=== PATIENT | male | born 1990 | race Caucasian/White ===

== ENCOUNTER 2021-02-10 09:51 | Emergency (ER) | payer SELFPAY | END 2021-02-10 12:10 | disposition home or self-care (01) | LOC: ER1 09:51 | DX: J02.9 Acute pharyngitis, unspecified (principal); I10 Essential (primary) hypertension; Z91.040 Latex allergy status; Z20.822 Contact with and (suspected) exposure to COVID-19 | CPT/HCPCS: 87081; 87880; 99283; U0003 ==